=== PATIENT | female | born 1970 | race Two or more races ===

== ENCOUNTER → 2018-03-25 | Outpatient (CLI) | payer OTHER ==
[2018-03-25 10:41] LABS: FOLATE 8.45 ng/mL (>2.76)
== END ==
LOC: CCC 08:13
DX: Z00.00 Encounter for general adult medical examination without abnormal findings (principal)
CPT/HCPCS: 36415; 82306; 82607; 82746

== ENCOUNTER → 2018-04-13 | Outpatient (CLI) | payer OTHER ==
[2018-04-13 17:00] LABS: ABSOLUTE EOSINOPHILS # (AUTO) 0.1 10^3/uL (0.0-0.6); ABSOLUTE LYMPHOCYTES (AUTO) 1.4 10^3/uL (0.5-4.7); ABSOLUTE MONOCYTES (AUTO) 0.3 10^3/uL (0.1-1.4); ABSOLUTE NEUT (AUTO) 1.8 10^3/uL (1.7-8.2); BASOPHILS % (AUTO) 0.8 % (0-2); EOSINOPHILS % (AUTO) 2.2 % (0-6); HEMATOCRIT 22.5 % (36.0-47.0); MEAN CORPUSCULAR HGB CONC 31.1 g/dL (32.0-36.0); MONOCYTES % (AUTO) 7.6 % (3-13); PLATELET COUNT 370 10^3/uL (150-450); RED BLOOD COUNT 3.68 10^6/uL (3.72-5.28); RED CELL DISTRIBUTION WIDTH 20.9 % (11.5-14.0); SEGMENTED NEUTROPHILS % (AUTO) 51.4 % (42-78); TOTAL CELLS COUNTED % (AUTO) 100 %; WHITE BLOOD COUNT 3.6 10^3/uL (4.0-10.5)
[2018-04-13 17:18] LABS: ALANINE AMINOTRANSFERASE 23 U/L (9-52); ALBUMIN 4.4 g/dL (3.5-5.0); ALKALINE PHOSPHATASE 81 U/L (38-126); ANION GAP 9 (5-19); ASPARTATE AMINO TRANSFERASE 17 U/L (14-36); BILIRUBIN,DIRECT 0.1 mg/dL (0.0-0.4); BILIRUBIN,TOTAL 0.1 mg/dL (0.2-1.3); BLOOD UREA NITROGEN 13 mg/dL (7-20); CALCIUM 9.3 mg/dL (8.4-10.2); CARBON DIOXIDE 26 mmol/L (22-30); CHLORIDE 107 mmol/L (98-107); GLUCOSE 106 mg/dL (75-110); IRON 18.2 ug/dL (37-170); POTASSIUM 4.2 mmol/L (3.6-5.0); SODIUM 142.2 mmol/L (137-145); TOTAL PROTEIN 7.2 g/dL (6.3-8.2)
[2018-04-13 17:52] LABS: FERRITIN 4.47 ng/mL (6.2-137.0)
[2018-04-14 09:40] LABS: MEAN CORPUSCULAR VOLUME 61 fl (80-97)
[2018-04-15 10:39] LABS: PATH REVIEW PATHOLOGIST REVIEWED
== END ==
LOC: OD 15:35
DX: Z00.00 Encounter for general adult medical examination without abnormal findings (principal)
CPT/HCPCS: 36415; 80053; 82728; 83036; 83540; 84443; 85025

== ENCOUNTER 2018-04-14 10:22 | Emergency (ER) | payer SELFPAY ==
--- NOTE | 2018-04-14 10:56 | ER Document Report ---
ED Medical Screen (RME) - General Chief Complaint: Abnormal Lab Results Stated Complaint: ABNORMAL LABS Time Seen by Provider: 04/14/18 10:43 Primary Care Provider: RADHIKA HALL [Primary Care Provider] - Follow up as needed Notes: 48 years old female with a history of anemia get iron infusions last was a year ago in [place]. Her primary care physician here ordered a lab work yesterday, which was done in this hospital. Hemoglobin was 7 therefore she was sent over to the ED. Do not know the reason. She has no symptoms. No bleeding. No melena. Has been taking iron but very poor absorption. This is an issue for outpatient iron infusion therapy. I do not know what we can do in the ER. TRAVEL OUTSIDE OF THE [place] IN LAST 30 DAYS: No - Related Data Allergies/Adverse Reactions: Sulfa (Sulfonamide Antibiotics) Allergy (Verified 04/14/18 10:25) Physical Exam - Vital signs Vitals: Temp Pulse Resp BP Pulse Ox 98.5 F 95 18 131/75 H 99 04/14/18 10:04/14/18 10:04/14/18 10:04/14/18 10:29 04/14/18 10:29 Course - Vital Signs Vital signs: Temp Pulse Resp BP Pulse Ox 98.5 F 95 18 131/75 H 99 04/14/18 10:04/14/18 10:04/14/18 10:29 04/14/18 10:29 04/14/18 10:29 Doctor's Discharge - Discharge Referrals: RADHIKA HALL [Primary Care Provider] - Follow up as needed
[2018-04-14 11:36] LABS: ABSOLUTE LYMPHOCYTES (AUTO) 1.5 10^3/uL (0.5-4.7); ABSOLUTE MONOCYTES (AUTO) 0.4 10^3/uL (0.1-1.4); ABSOLUTE NEUT (AUTO) 1.8 10^3/uL (1.7-8.2); BASOPHILS % (AUTO) 0.7 % (0-2); EOSINOPHILS % (AUTO) 1.3 % (0-6); HEMATOCRIT 23.1 % (36.0-47.0); MEAN CORPUSCULAR HEMOGLOBIN 18.6 pg (27.0-33.4); MEAN CORPUSCULAR HGB CONC 30.5 g/dL (32.0-36.0); MEAN CORPUSCULAR VOLUME 61 fl (80-97); MONOCYTES % (AUTO) 10.1 % (3-13); PLATELET COUNT 400 10^3/uL (150-450); RED BLOOD COUNT 3.78 10^6/uL (3.72-5.28); RED CELL DISTRIBUTION WIDTH 20.5 % (11.5-14.0); SEGMENTED NEUTROPHILS % (AUTO) 47.9 % (42-78); TOTAL CELLS COUNTED % (AUTO) 100 %; WHITE BLOOD COUNT 3.7 10^3/uL (4.0-10.5)
[2018-04-14 11:50] LABS: HEMOGLOBIN 7.1 g/dL (12.0-15.5)
[2018-04-14 12:02] LABS: ANISOCYTOSIS 2+; HYPOCHROMASIA 1+; OVALOCYTES 1+; POIKILOCYTOSIS 1+; STOMATOCYTES SLIGHT; TARGET CELLS SLIGHT; TOXIC GRANULATION SLIGHT
[2018-04-14 12:03] LABS: PLATELET COMMENT ADEQUATE
--- NOTE | 2018-04-14 13:16 | ER Document Report ---
ED General - General Chief Complaint: Abnormal Lab Results Stated Complaint: ABNORMAL LABS Time Seen by Provider: 04/14/18 10:43 Primary Care Provider: RADHIKA HALL [NO LOCAL MD] - Follow up as needed ANT SWEENEY MD [ACTIVE STAFF] - Follow up as needed TRAVEL OUTSIDE OF THE [place] IN LAST 30 DAYS: No - HPI Patient complains to provider of: Lab abnormalities Notes: Patient was then moved to the area was following up with the [facility] has a history of iron deficiency anemia has received blood transfusions and iron transfusions in the past last iron transfusion was approximately 6 months ago was blood transfusion was approximately 1 week ago states generalized fatigue otherwise no chest pain no headaches. Patient was seen at the [facility] had outpatient laboratory results performed yesterday showing s ignificant low iron and was told to come to the ER today for further evaluation. Upon my evaluation patient otherwise is resting comfortably. Patient is unaware of any expectations of care by her PCP patient denies any excessive bleeding denies any dark tarry stools denies any abdominal pain chest pain fevers chills nausea vomiting diarrhea - Related Data Allergies/Adverse Reactions: Sulfa (Sulfonamide Antibiotics) Allergy (Verified 04/14/18 10:25) Past Medical History - Social History Smoking Status: Current Every Day Smoker Chew tobacco use (# tins/day): No Frequency of alcohol use: None Drug Abuse: None Family History: Reviewed & Not Pertinent Patient has suicidal ideation: No Patient has homicidal ideation: No Renal/ Medical History: Denies: Hx Peritoneal Dialysis Review of Systems - Review of Systems Constitutional: Other - Lab abnormality EENT: No symptoms reported Cardiovascular: No symptoms reported Respiratory: No symptoms reported Gastrointestinal: No symptoms reported Genitourinary: No symptoms reported Female Genitourinary: No symptoms reported Musculoskeletal: No symptoms reported Skin: No symptoms reported Hematologic/Lymphatic: No symptoms reported Neurological/Psychological: No symptoms reported Physical Exam - Vital signs Vitals: Temp Pulse Resp BP Pulse Ox 98.5 F 95 18 131/75 H 99 04/14/18 10:29 04/14/18 10:29 04/14/18 10:29 04/14/18 10:29 04/14/18 10:29 Interpretation: Normal - General General appearance: Appears well, Alert - HEENT Head: Normocephalic, Atraumatic Eyes: Normal Pupils: PERRL - Respiratory Respiratory status: No respiratory distress Chest status: Nontender Breath sounds: Normal Chest palpation: Normal - Cardiovascular Rhythm: Regular Heart sounds: Normal auscultation Murmur: No - Abdominal Inspection: Normal Distension: No distension Bowel sounds: Normal Tenderness: Nontender Organomegaly: No organomegaly - Back Back: Normal, Nontender - Extremities General upper extremity: Normal inspection, Nontender, Normal color, Normal ROM, Normal temperature General lower extremity: Normal inspection, Nontender, Normal color, Normal ROM, Normal temperature, Normal weight bearing. No: Kaela's sign - Neurological Neuro grossly intact: Yes Cognition: Normal Orientation: AAOx4 [place] Coma Scale Eye Opening: Spontaneous Dre Coma Scale Verbal: Oriented Dre Coma Scale Motor: Obeys Commands [place] Coma Scale Total: 15 Speech: Normal Motor strength normal: LUE, RUE, LLE, RLE Sensory: Normal - Psychological Associated symptoms: Normal affect, Normal mood - Skin Skin Temperature: Warm Skin Moisture: Dry Skin Color: Normal Course - Re-evaluation Re-evalutation: 04/14/18 13:29 Discussed the patient's case with her PCP Dr. Machado of the [facility] who agrees with discussion of her case with hematology I did place a call into division sergeant Dr. Remy who is agrees with an iron transfusion to be given here in the ER follow-up outpatient in the next 6 weeks for a repeat CBC and iron level. Patient agrees with this plan currently waiting on iron to be delivered from pharmacy wants transfused patient will be discharged home - Vital Signs Vital signs: Temp Pulse Resp BP Pulse Ox 98.5 F 93 18 124/73 100 04/14/18 10:29 04/14/18 11:49 04/14/18 13:01 04/14/18 13:01 04/14/18 13:01 - Laboratory Result Diagrams: 04/14/18 11:21 Laboratory results interpreted by me: 04/14/18 11:21 WBC 3.7 L Hgb 7.1 L Hct 23.1 L MCV 61 L MCH 18.6 L MCHC 30.5 L RDW 20.5 H Discharge - Discharge Clinical Impression: Iron deficiency anemia Qualifiers: Iron deficiency anemia type: unspecified iron deficiency Qualified Code(s): D50.9 - Iron deficiency anemia, unspecified Condition: Good Disposition: HOME, SELF-CARE Instructions: Anemia, Iron Deficiency ([facility]) Additional Instructions: You received an iron transfusion today here in the ER. Please have your iron levels and a CBC rechecked in 6 weeks by your doctor at [facility] you may also follow-up with a division sergeant listed that we consulted today with your case return to the ER if symptoms worsen. [facility] [NO LOCAL MD] - Follow up as needed ANT SWEENEY MD [ACTIVE STAFF] - Follow up as needed
[2018-04-14] MEDS ORDERED: FERUMOXYTOL (ESRD) 510 MG/NS 100 ML IV ONE ×2 (13:30)
[2018-04-14 14:53] VITALS: BP 138/85
== END 2018-04-14 15:03 | disposition home or self-care (01) ==
LOC: ER 10:22
DX: D50.9 Iron deficiency anemia, unspecified (principal); R53.83 Other fatigue; F17.200 Nicotine dependence, unspecified, uncomplicated; Z88.2 Allergy status to sulfonamides
CPT/HCPCS: 36415; 85025; Q0139

== ENCOUNTER 2018-05-12 07:57 | Outpatient (CLI) | payer OTHER ==
[~2018-05-12 07:57] MED LIST: FERUMOXYTOL (NON-ESRD) 510 MG/NS 100 ML IV PRN; NORMAL SALINE 250 ML IV PRN
[2018-05-12 08:52] VITALS: BP 112/63
== END 2018-05-12 09:45 | disposition home or self-care (01) ==
LOC: II 07:57 → 5TH 08:01 → II 09:45
PROVIDERS: ATTEND Internal Medicine
PROC: 3E033GC Introduction of Other Therapeutic Substance into Peripheral Vein, Percutaneous Approach (ICD-10-PCS; principal; 2018-05-12)
DX: D50.9 Iron deficiency anemia, unspecified (principal); K90.9 Intestinal malabsorption, unspecified
CPT/HCPCS: 96365; Q0138

== ENCOUNTER 2018-05-19 08:05 | Outpatient (CLI) | payer OTHER ==
[2018-05-19 09:05] VITALS: BP 123/70
== END 2018-05-19 09:17 | disposition home or self-care (01) ==
LOC: II 08:05 → 5TH 08:09 → II 09:17
PROVIDERS: ATTEND Internal Medicine
PROC: 3E033GC Introduction of Other Therapeutic Substance into Peripheral Vein, Percutaneous Approach (ICD-10-PCS; principal; 2018-05-19)
DX: D50.9 Iron deficiency anemia, unspecified (principal); K90.9 Intestinal malabsorption, unspecified
CPT/HCPCS: 96365; Q0138

== ENCOUNTER → 2018-08-17 | Outpatient (CLI) | payer OTHER ==
[2018-08-17 11:12] LABS: ABSOLUTE BASOPHILS # (AUTO) 0.1 10^3/uL (0.0-0.2); ABSOLUTE EOSINOPHILS # (AUTO) 0.1 10^3/uL (0.0-0.6); ABSOLUTE LYMPHOCYTES (AUTO) 1.2 10^3/uL (0.5-4.7); ABSOLUTE MONOCYTES (AUTO) 0.4 10^3/uL (0.1-1.4); ABSOLUTE NEUT (AUTO) 3.2 10^3/uL (1.7-8.2); BASOPHILS % (AUTO) 1.2 % (0-2); EOSINOPHILS % (AUTO) 2.7 % (0-6); HEMATOCRIT 38.8 % (36.0-47.0); LYMPHOCYTES % (AUTO) 24.4 % (13-45); MEAN CORPUSCULAR HEMOGLOBIN 29.8 pg (27.0-33.4); MEAN CORPUSCULAR HGB CONC 33.5 g/dL (32.0-36.0); MEAN CORPUSCULAR VOLUME 89 fl (80-97); MONOCYTES % (AUTO) 8.8 % (3-13); PLATELET COUNT 290 10^3/uL (150-450); RED BLOOD COUNT 4.36 10^6/uL (3.72-5.28); RED CELL DISTRIBUTION WIDTH 17.1 % (11.5-14.0); SEGMENTED NEUTROPHILS % (AUTO) 62.9 % (42-78); TOTAL CELLS COUNTED % (AUTO) 100 %
[2018-08-17 11:59] LABS: T3 UPTAKE 24.2 %
== END ==
LOC: OD 10:21
DX: E03.9 Hypothyroidism, unspecified (principal)
CPT/HCPCS: 36415; 84436; 84443; 84479; 85025